=== PATIENT | female | born 1985 | race Caucasian/White ===

== ENCOUNTER 2016-09-24 08:25 | Inpatient (IN) | payer OTHER ==
[~2016-09-24] VITALS: Ht 162.6 cm; Wt 84.8 kg
[2016-09-24 11:14] LABS: UA SPECIFIC GRAVITY 1.025 (1.005-1.035); microscopic required? YES; urine erythrocyte 3+ (NEGATIVE)
[2016-09-24 11:42] LABS: BASOPHIL % 0.5 % (0-2)
[2016-09-24 11:43] LABS: CALCIUM 7.7 mg/dL (8.5-10.1); CARBON DIOXIDE 25.3 mmol/L (21-32); CHLORIDE SERUM 107 mmol/L (98-107); CREATININE SERUM 0.6 mg/dL (0.6-1.0); GFR1 > 60 mL/min; GLUCOSE SERUM 97 mg/dL (74-106); SODIUM SERUM 139 mmol/L (136-145)
[2016-09-24 11:44] LABS: PLATELET COUNT 408 x10^3mcL (130-400)
[2016-09-24 11:44] LABS: AMPHETAMINE QUAL UR NONE DETECTED (NEG <=1000)
[2016-09-24 11:47] LABS: ALBUMIN 3.2 g/dL (3.4-5.0); ALKALINE PHOSPHATASE 130 U/L (46-116); ALT/SGPT 254 U/L (14-59); AMYLASE 36 U/L (25-115); AST/SGOT 227 U/L (15-37); LIPASE 129 IU/L (73-393); TOTAL PROTEIN, SERUM 6.9 g/dL (6.4-8.2)
[2016-09-24 13:08] LABS: CHOLESTEROL/HDL RATIO 4.6; PHOSPHOROUS 2.5 mg/dL (2.5-4.9)
[2016-09-24 13:17] LABS: T3 TOTAL 1.27 ng/mL
[2016-09-24 13:28] VITALS: BP 130/68
[2016-09-24 13:31] VITALS: Ht 162.6 cm; Wt 84.8 kg
[2016-09-24 13:56] LABS: FREE T4 1.27 ng/dL (0.76-1.46)
[2016-09-24 13:57] LABS: FREE THYROXINE INDEX 4.6 ug/dL (1.4-4.5); T4(THYROXINE) 13.5 ug/dL (4.7-13.3)
[2016-09-24 14:09] LABS: RED BLOOD CELLS 3.59 M/mm3 (4.10-5.10)
[2016-09-24 14:28] LABS: TOTAL IRON BINDING CAPACITY 435 ug/dL (250-450)
[2016-09-24 14:30] LABS: IRON 18 ug/dL (50-170)
[2016-09-24 16:54] VITALS: BP 118/69
[2016-09-24 21:20] VITALS: BP 101/44
[2016-09-24 22:26] LABS: BASOPHIL % 0.5 % (0-2); PLATELET COUNT 397 x10^3mcL (130-400)
[2016-09-25 05:34] VITALS: BP 101/59
[2016-09-25 06:46] LABS: BASOPHIL % 0.6 % (0-2); RED CELL DISTRIBUTION WIDTH 13.1 % (11.5-14.5)
[2016-09-25 06:55] LABS: ALBUMIN 2.7 g/dL (3.4-5.0); ALKALINE PHOSPHATASE 132 U/L (46-116); ALT/SGPT 308 U/L (14-59); AST/SGOT 224 U/L (15-37); BILIRUBIN TOTAL 1.82 mg/dL (0.20-1.00); CALCIUM 7.7 mg/dL (8.5-10.1); CARBON DIOXIDE 25.1 mmol/L (21-32); CHLORIDE SERUM 108 mmol/L (98-107); CREATININE SERUM 0.7 mg/dL (0.6-1.0); GFR1 > 60 mL/min; GLUCOSE SERUM 118 mg/dL (74-106); MAGNESIUM 2.1 mg/dL (1.8-2.4); PHOSPHOROUS 3.2 mg/dL (2.5-4.9); POTASSIUM SERUM 3.7 mmol/L (3.5-5.1); SODIUM SERUM 142 mmol/L (136-145)
[2016-09-25 07:23] LABS: PLATELET COUNT 408 x10^3mcL (130-400)
[2016-09-25 09:53] VITALS: BP 86/38
[2016-09-25 14:40] VITALS: BP 103/60
[2016-09-25 17:53] VITALS: BP 120/65
[2016-09-25 20:22] VITALS: BP 111/53; BP 157/92
[2016-09-26 05:54] VITALS: BP 96/56
[2016-09-26 06:09] LABS: CALCIUM 7.7 mg/dL (8.5-10.1); CHLORIDE SERUM 109 mmol/L (98-107); CREATININE SERUM 0.6 mg/dL (0.6-1.0); GFR1 > 60 mL/min; GLUCOSE SERUM 108 mg/dL (74-106); MAGNESIUM 2.1 mg/dL (1.8-2.4); PHOSPHOROUS 2.6 mg/dL (2.5-4.9); POTASSIUM SERUM 3.5 mmol/L (3.5-5.1); SODIUM SERUM 142 mmol/L (136-145)
[2016-09-26 06:40] LABS: BASOPHIL % 1.4 % (0-2); RED CELL DISTRIBUTION WIDTH 12.1 % (11.5-14.5)
[2016-09-26 07:01] LABS: PLATELET COUNT 403 x10^3mcL (130-400)
[2016-09-26 10:28] VITALS: BP 132/65
[2016-09-26 17:54] VITALS: BP 108/62
[2016-09-26 21:12] VITALS: BP 110/56
[2016-09-27 06:28] LABS: BASOPHIL % 0.4 % (0-2)
[2016-09-27 06:33] VITALS: BP 116/61
[2016-09-27 06:36] LABS: CALCIUM 7.9 mg/dL (8.5-10.1); CARBON DIOXIDE 24.6 mmol/L (21-32); CHLORIDE SERUM 107 mmol/L (98-107); CREATININE SERUM 0.5 mg/dL (0.6-1.0); GFR1 > 60 mL/min; GLUCOSE SERUM 85 mg/dL (74-106); MAGNESIUM 2.7 mg/dL (1.8-2.4); PHOSPHOROUS 3.3 mg/dL (2.5-4.9); POTASSIUM SERUM 3.5 mmol/L (3.5-5.1); SODIUM SERUM 142 mmol/L (136-145)
[2016-09-27 07:18] LABS: PLATELET COUNT 414 x10^3mcL (130-400)
[2016-09-27 09:11] VITALS: BP 104/54
[2016-09-27 16:55] VITALS: BP 100/52
[2016-09-27 21:20] VITALS: BP 106/60
[2016-09-28] MEDS ORDERED: FERROUS GLUCON324 MG PO ×2 (05:26→05:48)
[2016-09-28] MEDS ORDERED: COLACE100 MG PO ×2 (05:26→05:48)
[2016-09-28] MEDS ORDERED: SIMETHICONE80 MG PO (05:26)
[2016-09-28] MEDS ORDERED: LAC PO (05:26)
[2016-09-28] MEDS ORDERED: VITAMIN C500 M4 PO (05:26)
[2016-09-28] MEDS ORDERED: NORCO1 TA2 PO (05:40)
[2016-09-28] MEDS ORDERED: LEVAQUIN250 M1 PO (05:40)
[2016-09-28] MEDS ORDERED: LAXATIVE5 M1 PO (05:40)
[2016-09-28 05:41] VITALS: BP 105/60
[2016-09-28] MEDS ORDERED: FLORASTOR1 CAP PO (05:49)
[2016-09-28] MEDS ORDERED: PHARMASSURE VI500 MG PO (05:49)
[2016-09-28] MEDS ORDERED: DULCOLAX5 M1 PO (05:50)
[2016-09-28] MEDS ORDERED: BICARSIM80 M1 PO (05:51)
[2016-09-28] MEDS ORDERED: [UNRECOGNIZED DRUG - OTHER] TP (06:15)
[2016-09-28 06:41] LABS: BASOPHIL % 0.5 % (0-2)
[2016-09-28 07:05] LABS: PLATELET COUNT 421 x10^3mcL (130-400)
[2016-09-28 09:36] VITALS: BP 119/76
[2016-09-28 09:38] VITALS: BP 119/76
== END 2016-09-28 10:27 | disposition home or self-care (01) | DRG 263 ==
LOC: ED 08:25 → MU 11:13 → DU 11:13 → MU 09-25 21:42
PROVIDERS: Emergency Medicine; Family Medicine; Internal Medicine; ADMIT Family Medicine
PROC: 0FT44ZZ Resection of Gallbladder, Percutaneous Endoscopic Approach (ICD-10-PCS; principal; 2016-09-25 09:00)
PROC: 8E0W4CZ Robotic Assisted Procedure of Trunk Region, Percutaneous Endoscopic Approach (ICD-10-PCS; 2016-09-25 09:00)
PROC: 0FC98ZZ Extirpation of Matter from Common Bile Duct, Via Natural or Artificial Opening Endoscopic (ICD-10-PCS; 2016-09-26)
DX: K80.42 Calculus of bile duct with acute cholecystitis without obstruction (principal); N17.0 Acute kidney failure with tubular necrosis; E43 Unspecified severe protein-calorie malnutrition; K64.8 Other hemorrhoids; K60.3 Anal fistula; N39.0 Urinary tract infection, site not specified; E66.9 Obesity, unspecified; K56.41 Fecal impaction; Z68.32 Body mass index [BMI] 32.0-32.9, adult; D62 Acute posthemorrhagic anemia; E80.6 Other disorders of bilirubin metabolism
CPT/HCPCS: 43262; 80307; 83880; 84439; 94150; C1769; C9113; J0690; J0696; J1170; J1885; J2250; J2270; J2405; J3010; J3490; J7030; Q0092; Q9967

== ENCOUNTER 2016-10-16 18:38 | Emergency (ER) | payer OTHER ==
[~2016-10-16] VITALS: Ht 162.6 cm; Wt 83.7 kg
[~2016-10-16 18:38] MED LIST: BICARSIM80 M1 PO; COLACE100 MG PO; DULCOLAX5 M1 PO; FERROUS GLUCON324 MG PO; FLORASTOR1 CAP PO; LAC PO; LAXATIVE5 M1 PO; LEVAQUIN250 M1 PO; NORCO1 TA2 PO; PHARMASSURE VI500 MG PO; SIMETHICONE80 MG PO; VITAMIN C500 M4 PO; [UNRECOGNIZED DRUG - OTHER] TP
[2016-10-16 19:24] LABS: BASOPHIL % 0.7 % (0-2); RED CELL DISTRIBUTION WIDTH 13.6 % (11.5-14.5)
[2016-10-16 19:34] LABS: CALCIUM 8.6 mg/dL (8.5-10.1); CARBON DIOXIDE 26.7 mmol/L (21-32); CHLORIDE SERUM 103 mmol/L (98-107); CREATININE SERUM 0.9 mg/dL (0.6-1.0); GFR1 > 60 mL/min; GLUCOSE SERUM 97 mg/dL (74-106); POTASSIUM SERUM 3.8 mmol/L (3.5-5.1); SODIUM SERUM 138 mmol/L (136-145)
[2016-10-16 19:44] LABS: PLATELET COUNT 571 x10^3mcL (130-400)
[2016-10-16 19:55] LABS: ALBUMIN 3.5 g/dL (3.4-5.0); ALKALINE PHOSPHATASE 92 U/L (46-116); ALT/SGPT 44 U/L (14-59); AST/SGOT 17 U/L (15-37); BILIRUBIN TOTAL 0.2 mg/dL (0.20-1.00); TOTAL PROTEIN, SERUM 7.4 g/dL (6.4-8.2)
[2016-10-16 21:17] VITALS: BP 117/59
== END 2016-10-16 21:18 | disposition home or self-care (01) ==
LOC: ED 18:38
PROVIDERS: Emergency Medicine
DX: K62.89 Other specified diseases of anus and rectum (principal); K62.5 Hemorrhage of anus and rectum
CPT/HCPCS: 36415; J1170; Q0162

== ENCOUNTER 2016-11-12 18:43 | Inpatient (IN) | payer OTHER ==
[~2016-11-12] VITALS: Ht 162.6 cm; Wt 84.4 kg
--- NOTE | 2016-11-12 19:31 | NUR ---
PT PRESENTS TO ED WITH C/O RECTAL PAIN AND BLEEDING. PT REPORTS RECTAL BLEEDING BEGAN TODAY. PT REPORTS SHE WAS SEEN YESTERDAY IN ED FOR RECTAL PAIN AND GIVEN TRAMADOL FOR PAIN. PT STATES SHE ONLY TOOK MEDS YESTERDAY DUE TO FEELING CONSTIPATED TODAY. PT REPORTS BLQ ABD PAIN, "IT'S THE SAME PAIN SINCE THEY TOOK MY GALLBLADDER OUT IN SEPTEMBER". PT DENIES ANY N/V. RESPIRATIONS EVEN AND UNLABORED. NO ACUTE DISTRESS NOTED. BED IN LOW POSITION. CALL LIGHT WITHIN REACH.
[2016-11-12 20:07] LABS: BASOPHIL % 0.3 % (0-2); RED CELL DISTRIBUTION WIDTH 13.4 % (11.5-14.5)
[2016-11-12 20:10] LABS: PLATELET COUNT 489 x10^3mcL (130-400)
[2016-11-12 20:11] LABS: CALCIUM 9.5 mg/dL (8.5-10.1); CARBON DIOXIDE 25.1 mmol/L (21-32); CHLORIDE SERUM 103 mmol/L (98-107); CREATININE SERUM 0.7 mg/dL (0.6-1.0); GFR1 > 60 mL/min; GLUCOSE SERUM 98 mg/dL (74-106); POTASSIUM SERUM 4.2 mmol/L (3.5-5.1); SODIUM SERUM 139 mmol/L (136-145)
[2016-11-12 20:13] LABS: ALKALINE PHOSPHATASE 77 U/L (46-116); ALT/SGPT 54 U/L (14-59); AMYLASE 44 U/L (25-115); AST/SGOT 23 U/L (15-37); BILIRUBIN TOTAL 0.23 mg/dL (0.20-1.00); LIPASE 112 IU/L (73-393); TOTAL PROTEIN, SERUM 8.1 g/dL (6.4-8.2)
--- NOTE | 2016-11-12 22:04 | NUR ---
REPORT GIVEN TO LITA GAUTHIER.
[2016-11-12 22:58] LABS: UA SPECIFIC GRAVITY 1.025 (1.005-1.035); microscopic required? YES; urine erythrocyte NEGATIVE (NEGATIVE)
--- NOTE | 2016-11-12 23:00 | NUR ---
RECEIVED PT FROM ER, PT ADMIT FOR GI BLEEDING, PT IS A/O X4, VERBAL RESPOSNIVE, ABLE TO TELL WHAT SHE NEEDS, LUNG SOUND CLEAR BILATEARL, NO COUGH, NO SOB, PT IS ON TELE 13, NSR, DENY ANY CHEST PAIN OR DISCOMFORT, BOWEL SOUND PRESENT ALL 4 QUADRANTS, NO DISTENTION, NO TENDER. PEDAL PULSE PRESENT BOTH FEET, NO EDEMA NOTED, IV AT LEFT AC, NO LEAKING, NO INFILTRATION. PT STILL C/O RECTAL PAIN AT 8/10 AFTER RECEIVED MORPHINE AND DILAUDID AT ER, NORCO WAS GIVEN. WILL CONTINUE TO MONITOR THE PT.
[2016-11-12 23:07] LABS: AMPHETAMINE QUAL UR NONE DETECTED (NEG <=1000)
--- NOTE | 2016-11-12 23:30 | NUR ---
REPORT TO DR. WOOD REGARDING THE UA RESULT, DR. RANDALL AWARE, WILL CONTINUE TO MONITOR THE PT.
[2016-11-12 23:39] VITALS: BP 145/78
--- NOTE | 2016-11-12 23:54 | NUR ---
RECTAL EXAM WAS DONE BY DR. WOOD, PT TOLERAED WELL, WILL CONTINUE TO MONITOR THE PT.
[2016-11-13 00:42] LABS: T3 TOTAL 1.29 ng/mL
[2016-11-13 00:47] LABS: MAGNESIUM 1.9 mg/dL (1.8-2.4); PHOSPHOROUS 4.2 mg/dL (2.5-4.9)
[2016-11-13 00:49] LABS: CHOLESTEROL/HDL RATIO 4.9
[2016-11-13 01:34] LABS: FREE T4 1.01 ng/dL (0.76-1.46); FREE THYROXINE INDEX 2.9 ug/dL (1.4-4.5); T4(THYROXINE) 8.4 ug/dL (4.7-13.3)
--- NOTE | 2016-11-13 05:12 | NUR ---
PT IS SLEEPING, NO S/S OF RESPIRATORY DISTRESS, NO S/S OF PAIN AT THIS MOMENT, IV AT LEFT AC, NO LEAKING, NO INFILTRAITON. ALL ADLS ASSIST, ALL NEED MET, CALL LIGHT IN REACH, WILL CONTINUE TO MONITOR.
--- NOTE | 2016-11-13 05:16 | NUR ---
CALLED THE LAB TO ADD HCG TO URINE TEST, LAB STAFF MADE AWARE, STATE WILL ADD TO URINE TEST.
[2016-11-13 06:14] LABS: BASOPHIL % 0.5 % (0-2); RED CELL DISTRIBUTION WIDTH 13.4 % (11.5-14.5)
[2016-11-13 06:38] VITALS: BP 114/69
[2016-11-13 06:56] LABS: PLATELET COUNT 411 x10^3mcL (130-400)
--- NOTE | 2016-11-13 07:33 | NUR ---
PT RECEIVED DURING CHANGE OF SHIFT, PT ASLEEP BUT AROUSABLE, TELE 13, NSR, NO INDICATION OF PAIN, PULSES PRESENT, SCD'S IN PLACE, LUNGS CTA ON RA, BREATHING EVEN AND UNLABORED, BOWEL SOUNDS ACTIVE, LBM 11/12/16, REPORTS OF BLOODY STOOL, PT ABLE TO VOID, AMBULATORY, SKIN WARM DRY INTACT, IV TO LAC INFUSING NS AT 120ML/HR, CALL LIGHT WITHIN REACH, AT BEDSIDE, WILL CONTINUE TO MONITOR.
--- NOTE | 2016-11-13 08:08 | NUR ---
PT C/O RECTAL PAIN 10/19, MEDICATED PER EMAR, DENIES SOB, AT BEDSIDE, CALL LIGHT WITHIN REACH, WILL CONTINUE TO MONITOR.
--- NOTE | 2016-11-13 09:43 | NUR ---
DR. ANGUIANO AND RESIDENTS MAKING ROUNDS, PLAN OF CARE DISCUSSED.
--- NOTE | 2016-11-13 10:02 | NUR ---
PT MEDICATED FOR HIP PAIN 10/19, PT WAS ON PHONE LAUGHING WHEN PRIMARY RN WALKED IN, SHORTLY AFTER PT STATED ON PHONE "I HAVE TO GO", PROCEEDED TO HANG UP PHONE AND BEGAN MOANING, CALL LIGHT WITHIN REACH, WILL CONTINUE TO MONITOR.
[2016-11-13 10:11] VITALS: BP 101/53
--- NOTE | 2016-11-13 11:36 | NUR ---
PT DENIES SOB, C/O RECTAL PAIN 12/19, WILL MEDICATE PER EMAR, CALL LIGHT WITHIN REACH, WILL CONTINUE TO MONITOR.
--- NOTE | 2016-11-13 12:40 | NUR ---
PT C/O RECTAL PAIN 12/19, DENIES SOB, VISITOR AT BEDSIDE, CALL LIGHT WITHIN REACH, WILL MEIDCATE PER EMAR, WILL CONTINUE TO MONITOR.
--- NOTE | 2016-11-13 13:20 | NUR ---
PT DENIES SOB, STATES PAIN IS TOLERABLE AT THIS TIME, CALL LIGHT WITHIN REACH, VISITOR AT BEDSIDE, WILL CONTINUE TO MONITOR.
[2016-11-13 13:29] VITALS: BP 106/62
--- NOTE | 2016-11-13 14:15 | NUR ---
PT C/O RECTAL PAIN, WILL MEDICATE PER EMAR, DENIES SOB, PT TO SHOWER, CALL LIGHT WITHIN REACH, VISITOR AT BEDSIDE, WILL CONTINUE TO MONITOR.
--- NOTE | 2016-11-13 15:12 | NUR ---
PT DENIES SOB, C/O RECTAL PAIN, MEDICATED PER EMAR, CALL LIGHT WITHIN REACH, WILL CONTINUE TO MONITOR.
[2016-11-13 17:13] VITALS: BP 121/62
--- NOTE | 2016-11-13 17:16 | NUR ---
PT ASLEEP, NO INDICATION OF PAIN, BREATHING EVEN AND UNLABORED, AT BEDSIDE, CALL LIGHT WITHIN REACH, WILL CONTINUE TO MONITOR.
--- NOTE | 2016-11-13 18:55 | NUR ---
PT C/O RECTAL PAIN, DENIES SOB, MEDICATED PER EMAR, CALL LIGHT WITHIN REACH, WILL ENDORSE PT TO NEXT SHIFT.
--- NOTE | 2016-11-13 21:31 | NUR ---
PT RECIEVED AAO REG RESP NO SOB,V/S STABLE,KEPT CLEAN AND DRY TO TOUCH,IV INFUSING WELL WITH THE SITE PATENT AND INTACT,PT HAVING THE LOOSE STOOLS AFTER HAVING THE BOWEL PERP FOR COLONSCOPY IN AM,NO BLOOY STOOLS SEEN AT THIS TIME,PT WITH RECTAL PAIN WAS MEDICATED WITH PAIN MEDS ORDER AND ALSO WAS ADMINISTER THE CREAM FOR THE RECTAL PAIN,CALL LIGHT MADE LXOE TO THE PATIENT AND WILL CONTINUE TO MONITOR.
[2016-11-13 21:55] VITALS: BP 146/78
[2016-11-13 21:56] VITALS: BP 117/68
[2016-11-14 05:50] VITALS: BP 110/59
[2016-11-14 05:57] LABS: BASOPHIL % 0.7 % (0-2); RED CELL DISTRIBUTION WIDTH 13.4 % (11.5-14.5)
[2016-11-14 06:14] LABS: CALCIUM 8.2 mg/dL (8.5-10.1); CARBON DIOXIDE 26.9 mmol/L (21-32); CHLORIDE SERUM 109 mmol/L (98-107); CREATININE SERUM 0.6 mg/dL (0.6-1.0); GFR1 > 60 mL/min; GLUCOSE SERUM 85 mg/dL (74-106); POTASSIUM SERUM 4.2 mmol/L (3.5-5.1); SODIUM SERUM 142 mmol/L (136-145)
[2016-11-14 06:30] LABS: PLATELET COUNT 423 x10^3mcL (130-400)
--- NOTE | 2016-11-14 06:39 | NUR ---
PT HAD A RESTING NIGHT V/S STABLE.KEPT CLEAN AND DRY TO TOUCH AND NO CHANGE IN CONDITION AT THIS TIME,PT IS CLEAR AND WILL CONTINUE TO MONITOR,
--- NOTE | 2016-11-14 07:39 | NUR ---
PT RECEIVED DURING CHANGE OF SHIFT, ASLEEP BUT AROUSABLE, NO TELE, PULSES PRESENT NO EDEMA, SCD'S IN PLACE, LUNGS CTA ON RA, BREATHING EVEN AND UNLABORED, REPORTS OF RECTAL BLEEDING, BOWEL SOUNDS ACTIVE, ABLE TO VOID, AMBULATORY, BRP, SKIN WARM DRY INTACT, NO INDICATION OF PAIN AT THIS TIME, IV TO LAC INFUSING NS AT 120ML/HR, CALL LIGHT WITHIN REACH, WILL CONTINUE TO MONITOR.
--- NOTE | 2016-11-14 08:40 | NUR ---
PT DENIES SOB, C/O RECTAL PAIN 12/19, MEDS GIVEN, CALL LIGHT WITHIN REACH, WILL MEDICATE PER EMAR, WILL CONTINUE TO MONITOR.
--- NOTE | 2016-11-14 08:44 | NUR ---
DR. VEGA AT BEDSIDE WITH RESIDENTS, PLAN OF CARE DISCUSSED.
--- NOTE | 2016-11-14 09:40 | NUR ---
PT ASLEEP BUT AROUSABLE, DENIES SOB, STATES PAIN IS NOW TOLERABLE, CALL LIGHT WITHIN REACH, WILL CONTINUE TO MONITOR.
[2016-11-14 10:12] VITALS: BP 123/54
--- NOTE | 2016-11-14 10:24 | NUR ---
PT ASLEEP, NO INDICATION OF PAIN, BREATHING EVEN AND UNLABORED, CALL LIGHT WITHIN REACH, WILL CONTINUE TO MONITOR.
--- NOTE | 2016-11-14 10:33 | NUR ---
REPORT GIVEN TO TITO GAUTHIER IN GI LAB, WILL AWAIT FURTHER INSTRUCTIONS FROM GI LAB.
--- NOTE | 2016-11-14 11:31 | NUR ---
PT BEING TAKEN DOWN TO GI LAB, WILL AWAIT RETURN.
--- NOTE | 2016-11-14 12:04 | NUR ---
PT STILL IN GI LAB, WILL AWAIT RETURN.
--- NOTE | 2016-11-14 13:04 | NUR ---
REPORT RECEIVED FROM POST OP, PT WILL ARRIVE SHORTLY.
--- NOTE | 2016-11-14 13:25 | NUR ---
PT RETURNED FROM GI LAB, AWAKE/DROWSY, VSS, DENIES SOB, STATES PAIN IS 2/10 AND CURRENTLY TOLERABLE, REFUSING PAIN MEDICATION AT THIS TIME, LUNGS CTA, CALL LIGHT WITHIN REACH, WILL CONTINUE TO MONITOR.
--- NOTE | 2016-11-14 14:15 | NUR ---
PT DENIES SOB, STATES PAIN IS TOLERABLE, AT BEDSIDE, CALL LIGHT WITHIN REACH, WILL CONTINUE TO MONITOR.
--- NOTE | 2016-11-14 15:03 | NUR ---
PT C/O RECTAL PAIN 12/19, MEDICATED PER EMAR, DENIES SOB, CALL LIGHT WITHIN REACH, WILL CONTINUE TO MONITOR.
--- NOTE | 2016-11-14 16:34 | NUR ---
PT DENIES SOB, PT C/O PAIN 09/18, NORCO WAS OFFERED PT REFUSED STATING "I'LL WAIT UNTIL THE DILAUDID IS DUE.", CALL LIGHT WITHIN REACH, WILL CONTINUE TO MONITOR.
--- NOTE | 2016-11-14 17:02 | NUR ---
PT DENIES SOB, C/O RECTAL PAIN 5/10, MEDICATED PER EMAR, CALL LIGHT WITHIN REACH, AT BEDSIDE, WILL CONTINUE TO MONITOR.
[2016-11-14 17:23] VITALS: BP 102/52
--- NOTE | 2016-11-14 18:23 | NUR ---
PT DENIES SOB, C/O RECTAL PAIN 12/19, MEDICATED PER EMAR, CALL LIGHT WITHIN REACH, FAMILY AT BEDSIDE, WILL ENDORSE PT TO NEXT SHIFT.
--- NOTE | 2016-11-14 19:39 | NUR ---
REC'D PT FROM DAY NURSE. AAOX4. LAYING IN BED COMFORTABLY. DENIES PAIN AT THIS TIME. PULSES ARE EVEN AND PALPABLE. MED SURG PT. LUNG SOUNDS ARE CTA, ON RA. BREATH SOUNDS ARE EVEN AND UNLABORED. ABD IS SOFT AND ROUND AND ACTIVE. IV INTACT AND PATENT INFUSING WELL. CALL LIGHT WITHIN REACH. WILL CONTINUE TO MONITOR.
[2016-11-14 21:14] VITALS: BP 96/59
--- NOTE | 2016-11-14 21:22 | NUR ---
PT GIVEN NORCO FOR RECTAL PAIN 12/19. AMBIEN TO HELP HER FALL ASLEEP. WILL CONT TO MONITOR.
--- NOTE | 2016-11-15 04:12 | NUR ---
PT IS ASLEEP AND RESTING COMFORTABLY IN BED. NO SIGNS OF DISTRESS NOTED. IV INTACT AND PATENT. WILL CONTINUE TO MONITOR.
--- NOTE | 2016-11-15 04:46 | NUR ---
PT IS COMPLAINING OF RECTAL PAIN 12/19. WILL BE GIVING PAIN MED. WILL CONT TO MONITOR.
[2016-11-15 05:27] VITALS: BP 96/69
[2016-11-15 05:51] LABS: BASOPHIL % 0.6 % (0-2); RED CELL DISTRIBUTION WIDTH 13.6 % (11.5-14.5)
[2016-11-15 05:55] LABS: CALCIUM 8.5 mg/dL (8.5-10.1); CARBON DIOXIDE 27.7 mmol/L (21-32); CHLORIDE SERUM 103 mmol/L (98-107); CREATININE SERUM 0.6 mg/dL (0.6-1.0); GFR1 > 60 mL/min; GLUCOSE SERUM 86 mg/dL (74-106); POTASSIUM SERUM 3.4 mmol/L (3.5-5.1); SODIUM SERUM 139 mmol/L (136-145)
--- NOTE | 2016-11-15 06:01 | NUR ---
PT SLEPT THROUGHOUT THE SHIFT. NO SIGNIFICANT CHANGES NOTED. PT STATES THAT SHE HAD WATERY STOOL. ALL NEEDS MET AND ATTENDED TO. IV INTACT AND PATENT INFUSING @10ML/HR. WILL ENDORSE ALL CONTINUITY CARE TO ONCOMING NURSE.
[2016-11-15 06:02] LABS: PLATELET COUNT 404 x10^3mcL (130-400)
--- NOTE | 2016-11-15 07:50 | NUR ---
A/O X4. CLEAR SPEECH. FOLLOW COMMANDS. ON MEDSURG HR 53. RADIAL AND PEDAL PULSES PALPABLE. NO EDEMA NOTED. <3 SECS CAP REFILL. ON RA SAT 98%. BREATHING EVEN AND UNLABORED. NO NVD. VOIDING ADEQUATELY. AMBULATORY WITH STEADY GAIT. NO SKIN TEAR OR OPEN WOUNDS. DENIES ANY BLEEDING. PER PREVIOUS REPORT Pt HAD X1 WATERY STOOL YESTERDAY WITHOUT BLEEDING. COMPLAINS OF SHARP RECTUM PAIN. SEE MAR. IV SITE INTACT ON RW. NS INFUSING WELL AT 10 ML/HR. WILL CONTINUE TO MONITOR. CALL LIGHT WITHIN REACH.
--- NOTE | 2016-11-15 08:48 | NUR ---
PER MORNING ROUNDS PUT Pt NPO. Pt AWARE. VERBALIZED UNDERSTANDING.
--- NOTE | 2016-11-15 09:55 | NUR ---
RESTING COMFORTABLY. WILL CONTINUE TO MONITOR.
[2016-11-15 10:19] VITALS: BP 102/50
--- NOTE | 2016-11-15 11:47 | NUR ---
SPOKE WITH DR RUIZ REGARDING Pt REQUESTING FOR PAIN MEDICATION AND NORCO GIVEN AT 0838 AND CURRENTLY PAIN MEDICATION IS NOT DUE TILL 1238.
--- NOTE | 2016-11-15 12:20 | NUR ---
DR RUIZ SEEN Pt AT BEDSIDE.
--- NOTE | 2016-11-15 12:36 | NUR ---
Pt COMPLAINS OF SHARP RECTUM PAIN 12/19. NORCO GIVEN WILL CONTINUE TO MONITOR.
--- NOTE | 2016-11-15 12:55 | NUR ---
Pt SIGNED CONSENT FOR ANAL FISSURECTOMY.
--- NOTE | 2016-11-15 13:45 | NUR ---
Pt WENT DOWN FOR PROCEDURE.
--- NOTE | 2016-11-15 16:01 | NUR ---
SPOKE TO DR RUIZ REGARDING Pt REQUESTING FOR PAIN MEDICATION AND PAIN IS AT 10/10 THIS TIME.
--- NOTE | 2016-11-15 16:34 | NUR ---
COMPLAINS OF SHARP RECTUM PAIN 10/10. IV MORPHINE GIVEN. WILL CONTINUE TO MONITOR.
--- NOTE | 2016-11-15 17:51 | NUR ---
SPOKE TO DR RUIZ REGARDING PAIN AT 01/19 . NO PAIN RELIEF FOR MORPHINE IV.
[2016-11-15 17:55] VITALS: BP 124/70
--- NOTE | 2016-11-15 19:36 | NUR ---
RECEIVED REPORT FROM ABRAHAN VERDUGO. PT RESTING IN BED IN NO ACUTE DISTRESS BUT ADMITS TO SEVERE PAIN FROM POST ANAL FISSURECTOMY. WILL MEDICATE PER PRN ORDERS. AAOX4. M/S PT. DENIES OF ANY CHEST DISCOMFORT. PER PULSES STRONG. NEG ON EDEMA. IN RA WITH SAT OF 96%. BREATHING EVENLY AND UNLABORED. NO SOB NOTED. LUNGS CTA. BS ACTIVE. ABD SOFT AND NON DISTENDED. PT REPORTS OF PASSING GAS POST PROCEDURE TODAY. GEN WEAKNESS BUT AMBULATES STEADILY. NO BLEEDING NOTED ON RECTAL AREA. IV ON LAC PATENT. FAMILY ON THE BEDSIDE. INSTRUCTED PT TO CALL FOR ANY NEEDS/ASSISTANCE. CALL LIGHT WITHIN REACH. WILL CONT TO MONITOR PT.
[2016-11-15 20:32] VITALS: BP 113/59
--- NOTE | 2016-11-16 05:03 | NUR ---
PAIN MANAGEMENT ENFORCED. PT HAS BEEN ON INTERM RECTAL PAIN FROM POST PROCEDURE. SAFETY MEASURES WERE ENSURED. FAMILY MEMBER STAYED THROUGH OUT THE NIGHT. CALL LIGHT WITHIN REACH. NO ACTIVE BLEED NOTED ON RECTAL SITE. PT HAS NOT PASSED BM BUT REPORTS OF PASSING GAS.
[2016-11-16 06:54] VITALS: BP 104/53
--- NOTE | 2016-11-16 07:12 | NUR ---
PT SEEN REST ON BED WITH FAMILY MEMBER AT BED SIDE. PT NO COMPLAIN OF PAIN AT THIS TIME. PT BREATHING ON RA, EVEN, UNLABORED. IV SITE PATENT, INTACT. IVF INFUSING WELL.
[2016-11-16 07:16] LABS: BASOPHIL % 0.1 % (0-2); RED CELL DISTRIBUTION WIDTH 13.1 % (11.5-14.5)
[2016-11-16 07:23] LABS: PLATELET COUNT 451 x10^3mcL (130-400)
[2016-11-16 07:30] VITALS: BP 97/51
[2016-11-16 07:47] LABS: CALCIUM 8.6 mg/dL (8.5-10.1); CARBON DIOXIDE 27.3 mmol/L (21-32); CHLORIDE SERUM 100 mmol/L (98-107); CREATININE SERUM 0.7 mg/dL (0.6-1.0); GFR1 > 60 mL/min; GLUCOSE SERUM 106 mg/dL (74-106); POTASSIUM SERUM 3.5 mmol/L (3.5-5.1); SODIUM SERUM 136 mmol/L (136-145)
--- NOTE | 2016-11-16 09:19 | NUR ---
PT'S AT BED SIDE AND ASSIST PT TO TAKE SHOWER. PT COMPLAIN OF ANAL PAIN, REQUEST IV PAIN MED. WILL PROVIDE PAIN MANAGEMENT PER ORDER.
--- NOTE | 2016-11-16 10:00 | NUR ---
PT REPORTED NO ACTIVE BLEEDING FROM RECTAL AREA. PT COMPLAIN OF PAIN AFTER SHOWER, DILAUDID GIVEN PER PRN ORDER.
[2016-11-16 11:58] VITALS: Ht 162.6 cm; Wt 84.4 kg
[2016-11-16 13:12] VITALS: BP 112/59
--- NOTE | 2016-11-16 15:27 | NUR ---
PT REPORTED SHE WAS NOT ABLE TO TOLERATE AMBULATING WELL 2/2 ANAL PAIN. PT REQUESTED PAIN MED TO MANAGE. PERCOCET GIVEN PER ORDER.
[2016-11-16 18:03] VITALS: BP 101/50
--- NOTE | 2016-11-16 18:32 | NUR ---
PT STATED PERCOCET DIDN'T CONTROL PAIN WELL. MOPHINE GIVEN PER ORDER. PT BREATHING ON RA, EVEN, UNLABORED. IV SITE PATENT, INTACT. IVF INFUSING WELL.
--- NOTE | 2016-11-16 19:20 | NUR ---
RECEIVED PT IN BED AWAKE, ALERT,ORIENTED X4 W/ AT BEDSIDE VISITING. NO SOB ON RA. W/ ACTIVE BOWEL SOUNDS. PT VERBALIZED HAVING MOD PAIN TO ANAL AREA. ADVISED TO INFORM NURSE IF NEEDS PAIN MEDS. NO ACTIVE BLEEDING ON ANAL AREA AT THIS TIME PER PT. IVF NS AT 10 CC/HR INFUSING VIA LTAC.
[2016-11-16 21:31] VITALS: BP 120/71
--- NOTE | 2016-11-17 05:12 | NUR ---
PT SLEPT AT LONG INTERVALS. SHE WAS MEDIATED FOR PAIN X1 W/ MOD. RELIEF. PT STATED NO PROFUSE BLEEDING FROM RECTUM BUT ONLY SPOTTING AT TIMES. NO BM NOTED. IVF NS AT 10 CC/HR INFUSING VIA LTAC.
--- NOTE | 2016-11-17 05:48 | NUR ---
PT C/O RECTAL PAIN 02/18. OFFERED HER PERCOCET BUT REFUSED AND SAID IT DOES NOT WORK. DR. VELEZ INFORMED AND ORDER GIVEN. TORADOL 15 MG IV GIVEN ORDERED.
--- NOTE | 2016-11-17 06:18 | NUR ---
PT NOW RESTING MORE COMFORTABLY. SHE VERBALIZED MOD RELIEF OF PAIN AFTER RECEIVING TORADOL 15 MG IV.
[2016-11-17 06:33] LABS: BASOPHIL % 0.6 % (0-2); RED CELL DISTRIBUTION WIDTH 13.7 % (11.5-14.5)
[2016-11-17 06:47] VITALS: BP 104/59
[2016-11-17 06:48] LABS: PLATELET COUNT 409 x10^3mcL (130-400)
[2016-11-17 06:56] LABS: CALCIUM 8.4 mg/dL (8.5-10.1); CARBON DIOXIDE 25.4 mmol/L (21-32); CHLORIDE SERUM 109 mmol/L (98-107); CREATININE SERUM 0.6 mg/dL (0.6-1.0); GFR1 > 60 mL/min; GLUCOSE SERUM 94 mg/dL (74-106); MAGNESIUM 1.8 mg/dL (1.8-2.4); PHOSPHOROUS 4.3 mg/dL (2.5-4.9); POTASSIUM SERUM 3.9 mmol/L (3.5-5.1); SODIUM SERUM 145 mmol/L (136-145)
--- NOTE | 2016-11-17 07:22 | NUR ---
PT SEEN RESTING ON BED WITH HER AT BED SIDE. PT NO COMPLAIN OF PAIN AT THIS TIME. PT BREATHING ON RA, EVEN, UNLABORED. IV SITE PATENT, INTACT. IVF INFUSING WELL.
[2016-11-17 10:03] VITALS: BP 98/50
--- NOTE | 2016-11-17 15:57 | NUR ---
ASSISTED AND TAUGHT PT TO USE SITZ BATH.
[2016-11-17 17:23] VITALS: BP 124/67
--- NOTE | 2016-11-17 17:48 | NUR ---
PT COMPLAIN OF ANAL PAIN INCREASING. PERCOCET GIVEN PER PRN ORDER. SO FAR PT NO BM REPORTED.
--- NOTE | 2016-11-17 18:31 | NUR ---
PT'S FAMILYMEMBER AT BED SIDE. NO BM THROUGH THE DAY. ENCOURAGE PT TO AMBULATE TOLERATE. NO ACTIVE BLEEDING REPORTED AND NOTED. PT NO COMPLAIN OF PAIN AT THIS TIME. PT BREATHING ON RA, EVEN UNLABORED. IV SITE PATENT, INTACT. IVF INFUSING WELL.
--- NOTE | 2016-11-17 19:24 | NUR ---
RECEIVED REPORT FROM ABRAHAN BLANCO. PT RESTING IN BED COMFORTABLY IN NO ACUTE DISTRESS OR DISCOMFORT. AAOX4. ON TELE MON 3 SR-ST. DENIES OF ANY CHEST DISCOMFORT. PER PULSES STRONG. IN RA WITH SAT OF 100%. BREATHING EVENLY AND UNLABORED. NO SOB NOTED. LUNGS DIM ON BLL. BS ACTIVE. LAST BM FORMED PER PT. VOIDS FREELY WITHOUT ANY PAIN. AMBULATES STEADILY. SKIN DRY AND INTACT. DENIES OF ANY PAIN. RIJ LINE PATENT. SAFETY MEASURES ENSURED. DAUGHTER ON THE BEDSIDE. INSTRUCTED PT AND FAMILY TO CALL FOR ANY NEEDS/ASSISTANCE. CALL LIGHT WITHIN REACH. WILL CONT TO MONITOR PT.
[2016-11-17] MEDS ORDERED: HYD2.5C TOP (19:46)
[2016-11-17] MEDS ORDERED: MAC100 PO (19:52)
[2016-11-17] MEDS ORDERED: LAC PO (19:53)
[2016-11-17] MEDS ORDERED: APAP/OXYCODONE1 TA4 PO (19:56)
[2016-11-17] MEDS ORDERED: COL100 PO (19:58)
[2016-11-17 20:00] VITALS: BP 106/56
[2016-11-17] MEDS ORDERED: METAMUCIL0.52 GM PO (20:03)
[2016-11-17 20:18] VITALS: BP 124/67
--- NOTE | 2016-11-17 20:25 | NUR ---
PT HAS BEEN PREPARED FOR DISCHARGE TO HOME. AAOX4. IN NO ACUTE DISTRESS. LATEST VS STABLE. ACCOMPANIED BY FAMILY. ALL BELONGINGS INCLUDED. NO BLEED NOTED ON RECTAL SITE. IV SITE AND ID BAND HAS BEEN REMOVED. ALL DOCUMENTATIONS SIGNED.
== END 2016-11-17 21:13 | disposition home or self-care (01) | DRG 226 ==
LOC: ED 18:43 → DU 21:44 → MU 21:44 → DU 22:53 → MU 11-13 11:05
PROVIDERS: Emergency Medicine; Internal Medicine; ADMIT Family Medicine
PROC: 0DBP8ZX Excision of Rectum, Via Natural or Artificial Opening Endoscopic, Diagnostic (ICD-10-PCS; principal; 2016-11-14 12:00)
PROC: 0DBQXZZ Excision of Anus, External Approach (ICD-10-PCS; 2016-11-15)
DX: K60.2 Anal fissure, unspecified (principal); N39.0 Urinary tract infection, site not specified; E78.2 Mixed hyperlipidemia; K59.00 Constipation, unspecified; E66.9 Obesity, unspecified; Z68.31 Body mass index [BMI] 31.0-31.9, adult; Z90.49 Acquired absence of other specified parts of digestive tract; D50.9 Iron deficiency anemia, unspecified; Z80.0 Family history of malignant neoplasm of digestive organs
CPT/HCPCS: 45378; 83880; 84439; 94150; J0696; J1170; J1200; J1610; J1885; J2001; J2175; J2250; J2270; J2310; J2405; J3010; J3490; J7030; Q0092; Q0162

== ENCOUNTER 2017-08-25 14:21 | Emergency (ER) | payer OTHER ==
[~2017-08-25] VITALS: Ht 162.6 cm; Wt 78.9 kg
[~2017-08-25 14:21] MED LIST changes: +APAP/OXYCODONE1 TA4 PO; +COL100 PO; +HYD2.5C TOP; +MAC100 PO; +METAMUCIL0.52 GM PO
[2017-08-25 14:27] VITALS: Ht 162.6 cm; Wt 78.9 kg
[2017-08-25 15:19] VITALS: BP 112/59
[2017-08-25 15:19] LABS: BASOPHIL % 0.9 % (0-2); PLATELET COUNT 362 x10^3mcL (130-400); RED CELL DISTRIBUTION WIDTH 12.9 % (11.5-14.5)
[2017-08-25 15:26] LABS: CALCIUM 8.3 mg/dL (8.5-10.1); CARBON DIOXIDE 27.1 mmol/L (21-32); CHLORIDE SERUM 105 mmol/L (98-107); CREATININE SERUM 0.4 mg/dL (0.6-1.0); GFR1 > 60 mL/min; GLUCOSE SERUM 83 mg/dL (74-106); POTASSIUM SERUM 3.6 mmol/L (3.5-5.1); SODIUM SERUM 140 mmol/L (136-145)
== END 2017-08-25 15:58 | disposition home or self-care (01) ==
LOC: ED 14:21
PROVIDERS: Emergency Medicine
DX: O26.891 Other specified pregnancy related conditions, first trimester (principal); R10.11 Right upper quadrant pain; Z3A.12 12 weeks gestation of pregnancy
CPT/HCPCS: 36415; Q0092

== ENCOUNTER 2017-09-26 00:57 | Emergency (ER) | payer OTHER ==
[~2017-09-26] VITALS: Ht 162.6 cm; Wt 82.1 kg
[2017-09-26 01:02] VITALS: Ht 162.6 cm; Wt 82.1 kg
[2017-09-26 01:43] LABS: BASOPHIL % 0.3 % (0-2); PLATELET COUNT 357 x10^3mcL (130-400); RED CELL DISTRIBUTION WIDTH 11.9 % (11.5-14.5)
[2017-09-26 01:51] LABS: CALCIUM 8.5 mg/dL (8.5-10.1); CARBON DIOXIDE 23.4 mmol/L (21-32); CHLORIDE SERUM 104 mmol/L (98-107); CREATININE SERUM 0.5 mg/dL (0.6-1.0); GFR1 > 60 mL/min; GLUCOSE SERUM 80 mg/dL (74-106); POTASSIUM SERUM 3.5 mmol/L (3.5-5.1); SODIUM SERUM 134 mmol/L (136-145)
[2017-09-26 01:56] LABS: ALKALINE PHOSPHATASE 53 U/L (46-116); ALT/SGPT 14 U/L (14-59); AST/SGOT 12 U/L (15-37); BILIRUBIN TOTAL 0.19 mg/dL (0.20-1.00); LIPASE 119 IU/L (73-393); TOTAL PROTEIN, SERUM 6.6 g/dL (6.4-8.2)
[2017-09-26 01:57] LABS: ALBUMIN 2.9 g/dL (3.4-5.0)
[2017-09-26 02:59] LABS: UA SPECIFIC GRAVITY >=1.030 (1.005-1.035); microscopic required? YES; urine erythrocyte TRACE (NEGATIVE)
[2017-09-26 03:57] VITALS: BP 116/53
== END 2017-09-26 03:57 | disposition home or self-care (01) ==
LOC: ED 00:57
PROVIDERS: Emergency Medicine
DX: O26.892 Other specified pregnancy related conditions, second trimester (principal); R10.2 Pelvic and perineal pain; Z3A.17 17 weeks gestation of pregnancy; Z90.89 Acquired absence of other organs
CPT/HCPCS: 36415; Q0092